=== PATIENT | female | born 1970 | race American Indian/Alaskan Native ===

== ENCOUNTER 2018-11-17 21:16 | Emergency (ER) | payer MEDICAID ==
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
[2018-11-17 22:10] VITALS: BP 154/94
[2018-11-17 23:20] LABS: HCG Qualitative,Urine Negative (Negative)
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
[2018-11-18] MEDS ORDERED: TYLENOL PO ONE (00:48)
[2018-11-18] MEDS ORDERED: IBUPROFEN PO ONE (00:48)
== END 2018-11-18 01:05 | disposition home or self-care (01) ==
LOC: ED 21:16
DX: S76.011A Strain of muscle, fascia and tendon of right hip, initial encounter (principal); M62.838 Other muscle spasm; M54.2 Cervicalgia; Z79.899 Other long term (current) drug therapy; Z88.0 Allergy status to penicillin; Z88.8 Allergy status to other drugs, medicaments and biological substances; V49.50XA Passenger injured in collision with unspecified motor vehicles in traffic accident, initial encounter; Y93.89 Activity, other specified; Y92.488 Other paved roadways as the place of occurrence of the external cause; Y99.8 Other external cause status
CPT/HCPCS: 72040; 81025; 99284